=== PATIENT | male | born 1980 | race Caucasian/White ===

== ENCOUNTER 2022-06-22 20:11 | Emergency (ER) | payer MEDICAID | END 2022-06-22 23:32 | disposition other institution (70) | LOC: JP.ED 20:11 | DX: F19.10 Other psychoactive substance abuse, uncomplicated (principal); F17.210 Nicotine dependence, cigarettes, uncomplicated; Z20.822 Contact with and (suspected) exposure to COVID-19 | CPT/HCPCS: 36415; 80305-QW; 80307; 99282; U0002 ==